=== PATIENT | male | born 1955 | race Caucasian/White ===

== ENCOUNTER → 2022-11-05 | Outpatient (CLI) | payer MEDICARE, OTHER ==
--- NOTE | 2022-11-05 11:59 | P.SLEEP ---
History of Present Illness DATE: 11/05/2022 CONSULTATION/NEW PATIENT EVALUATION HISTORY OF PRESENT ILLNESS/SLEEP-WAKE EVALUATION: 67 year old gentleman had been evaluated in the sleep center for possible obstructive sleep apnea hypopnea syndrome. Patient has history of obstructive sleep apnea diagnosed in another institution about 15 years ago. She was on treatment with CPAP, but then she lost some weight and stop treatment many years ago. SLEEP SCHEDULE: Usually sleep schedule from 11 PM to 7 AM 7 days a week. FALLING ASLEEP: No problems with falling asleep. DURING SLEEP: Patient snores and wakes up from sleep 2 times with nocturia. No history of hypnogogical hallucinations, sleep paralysis, or cataplexy. DURING THE DAY/WAKE STATE: In the morning patient wake up tired, has difficulties to place attention, falling asleep during the day, has problems with memory. Dillon sleepiness scale is significantly increased to 15. Patient usually take 1 nap after lunch time. PAST MEDICAL HISTORY: Hypertension, atrial fibrillation, acid reflux, diabetes mellitus, hyperlipidemia, sinuses problems, history of TIA. PAST SURGICAL HISTORY: Tonsillectomy and adenoidectomy at age of 8. MEDICATIONS: Omeprazole 40 mg once a day, Eliquis 5 mg twice a day, Jardiance 12.5 mg twice a day, losartan with hydrochlorothiazide, atorvastatin 10 mg once a day, aspirin 81 mg once a day. SOCIAL HISTORY: Positive for smoking for about 30 years up to 2 packs a day, quit 18 years ago, alcohol consumption occasional. FAMILY HISTORY: Hypertension, heart problems, stroke. REVIEW OF SYSTEMS: Snoring, awakenings from sleep, sleepiness during the day, memory problems. No fevers. No double vision. No recent chest pain. No shortness of breath. No abdominal pain. No bleeding episodes. No blood in urine. No seizure episodes. PHYSICAL EXAMINATION: GENERAL: A pleasant patient without any distress. VITAL SIGNS: BP 130/84, HR 72, RR 16, weight 233.2 pounds, height 5 foot 9 inches, body mass index 35.2. HEENT: PERRLA, EOMI. Evaluation of oropharynx showed tongue protrudes midline, low position of soft palate Mallampati 4. NECK: Supple. No JVD. Thyroid is not palpable. 18-1/4 inches in circumference. LUNGS: Clear to percussion and to auscultation. Good air exchange. No wheezing or rhonchi. HEART: S1, S2 regular. No murmurs, gallops or rubs. ABDOMEN: Soft and nontender. Bowel sounds are present. No organomegaly appreciated. EXTREMITIES: No clubbing or cyanosis. CUSTOMER SERVICE REP: Awake, alert, and oriented x3. Cranial nerves 2 to 7 intact. There is no fasciculation or atrophy noted. No focal deficits observed. ASSESSMENT: 1. Snoring, awakenings from sleep with nocturia, dry mouth and sweating, extremely low position of soft palate Mallampati 4, wide neck 18-1/4 inches in circumference, sleepiness with Dillon Sleepiness Scale 15, history of obstructive sleep apnea before. Obstructive sleep apnea-hypopnea syndrome. 2. History of atrial fibrillation, presently heart tones sounds regular. 3. Obesity, BMI 35.2. 4. Hypertension. 5 recent memory problems. 6 . History of TIA. 7. Diabetes mellitus. 8. Hyperlipidemia. 9 . History of sinuses problems. 10. History of smoking in the past. PLAN: 1. Polysomnography for evaluation of patient's breathing during sleep. 2. CPAP/BiPAP titration if sleep study confirms obstructive sleep apnea- hypopnea syndrome. 3. Preferable position during sleep on the side. 4. No driving if patient feels any sleepiness. Patient is aware of civil and criminal liability for unsafe driving. 5. Sleep hygiene with regular sleep time for at least 7.5-8 hours. 6. Watching and losing weight. Thank you very much for referring this patient for consultation. Sincerely, Ozzy Haley MD, PhD, FAASM. Diplomat of [place] [employer], Sleep Medicine Board by [place] [employer] [employer] [facility] [place] Medications and Allergies Allergies Allergy/AdvReac Type Severity Reaction Status Date / Time No Known Allergies Allergy Verified 03/26/14 12:17 Sleep Note - Sleep Note Sleep Note: Temperature: Pulse Rate: Respiratory Rate: Blood Pressure: SpO2: Height: Weight: BMI: Neck Circumference:
== END ==
LOC: 3 N SLEEP 11:00
PROVIDERS: ATTEND Internal Medicine
DX: G47.33 Obstructive sleep apnea (adult) (pediatric) (principal); E66.9 Obesity, unspecified; Z68.35 Body mass index [BMI] 35.0-35.9, adult; I48.91 Unspecified atrial fibrillation; I10 Essential (primary) hypertension; Z86.73 Personal history of transient ischemic attack (TIA), and cerebral infarction without residual deficits; E78.5 Hyperlipidemia, unspecified; E11.9 Type 2 diabetes mellitus without complications; J34.2 Deviated nasal septum; Z87.891 Personal history of nicotine dependence; Z99.89 Dependence on other enabling machines and devices; Z79.01 Long term (current) use of anticoagulants; Z79.82 Long term (current) use of aspirin
CPT/HCPCS: 99211

== ENCOUNTER → 2023-09-09 | Outpatient (CLI) | payer MEDICARE, OTHER ==
--- NOTE | 2023-09-09 11:22 | US ---
EXAMINATION TYPE: US abdomen complete DATE OF EXAM: 09/09/2023 COMPARISON: NONE CLINICAL INDICATION: Male, 68 years old with history of R94.5 ABNORMAL RESULTS OF LIVER FUNCTION STUD IES; abnormal liver functions TECHNIQUE: Multiple sonographic images of the abdomen are obtained. FINDINGS: EXAM MEASUREMENTS: Liver Length: 17.1 cm Gallbladder Wall: 0.22 cm CBD: 0.4 cm Spleen: 13.1 cm Right Kidney: 12.3 x 5.5 x 5.3 cm Left Kidney: 13.3 x 6.0 x 6.3 cm Pancreas: parts seen appear wnl Liver: upper limits of normal. slightly heterogeneous Gallbladder: wnl Evidence for sonographic Stallworth's sign: No CBD: wnl Spleen: upper limits of normal Right Kidney: wnl Left Kidney: column of andrew vs other etiology Upper IVC: wnl Abd Aorta: wnl IMPRESSION: 1. Borderline hepatomegaly and borderline splenomegaly. No focal liver masses are fatty infiltration. 2. Normal gallbladder and biliary tree. 3. Unremarkable kidneys, aorta and IVC.
== END | disposition home or self-care (01) ==
LOC: RADUSWWP 07:21
PROVIDERS: ATTEND Family Medicine
DX: R94.5 Abnormal results of liver function studies (principal); R16.2 Hepatomegaly with splenomegaly, not elsewhere classified
CPT/HCPCS: 76700